=== PATIENT | female | born 1985 | race Caucasian/White ===

== ENCOUNTER → 2016-08-15 | Outpatient (CLI) | payer BC ==
--- NOTE | ~2016-08-15 | XA198 ---
[facility] A Service of [facility] RADIOLOGY TEXT RESULTS PATIENT: THELMA KAY LOCATION: [facility] ERR : 85 UNIT #: [id number] AGE: [address]: CHRISTINA BOURNE APRN SEX: F ORDER DR: [id number] [facility] [address] [place], [place] [address] [id number] O MR#: [id number] Acc #: [id number] NAME: THELMA KAY : 1985 SEX: F STUDY DATE/TIME: 08/15/2016 9:30 UNIT: [facility] ROOM: STUDY DESCRIPTION: XA Spinal Puncture Attending Physician: Christina Bourne Aprn Referring Physician: Christina Bourne Aprn Ordering Physician: Christina Bourne Aprn Primary Care Physician: Tuan Giles D.O. MEDICAL IMAGING REPORT This report is preliminary unless electronic signature is present EXAM Fluoroscopically-guided lumbar puncture INDICATION Pseudotumor cerebri. The patient reports chronic headaches for 3 years but they have gotten worse recently. PROCEDURE The risks, benefits, and alternatives to the procedure were explained to the patient, and signed, informed consent was obtained. She was placed prone on the angiographic table and was prepped and draped in the usual sterile fashion. Time-out was performed as per protocol. Skin and subcutaneous tissues were anesthetized with buffered lidocaine and a spinal needle was advanced into the spinal canal. Removal of the inner stylet yielded clear CSF and position of the needle was confirmed with a radiographic image. Initial opening pressure was 35. There was removal of approximately 12 mL of clear CSF. Closing pressure was found to be 17. Needle was then removed and manual pressure was applied until hemostasis was obtained. Total fluoroscopy time was 0.9 minutes. AK was 103 mGy. Dictated by... Emily Tavera M.D. THIS IS AN ELECTRONICALLY VERIFIED REPORT Emily Tavera M.D. at 08/18/2016 3:25 PM MARINA/alejandro TD: 08/18/2016 08:09 JOB #: [id number] MEDICAL IMAGING REPORT Page 1 of 1 COPY
[2016-08-15 09:00] LABS: HEMATOCRIT 33.8 % (35.0-45.0); HEMOGLOBIN 10.5 gm/dL (12.0-16.0); MEAN CELL VOLUME 76.5 FL (83-96); MEAN CORPUSCULAR HEMOGLOBIN 23.8 PG (28-34); MEAN CORPUSCULAR HGB CONC 31.2 g/dL (30-36); MEAN PLATELET VOLUME 7.2 FL (6.5-11.5); RED BLOOD COUNT 4.42 X10e (3.90-5.30); WHITE BLOOD COUNT 7.9 X10e3 (4.0-10.5)
[2016-08-15 09:12] LABS: INR 1.1; PARTIAL THROMBOPLASTIN TIME 25.2 SECONDS (23.5-31.3); PROTHROMBIN TIME (PATIENT) 11.8 SECONDS (10.0-11.7)
== END | disposition home or self-care (01) ==
LOC: CIVR 08:02
PROVIDERS: Nurse Practitioner Family
PROC: 009U3ZZ Drainage of Spinal Canal, Percutaneous Approach (ICD-10-PCS; principal; 2016-08-15)
DX: G93.2 Benign intracranial hypertension (principal)
CPT/HCPCS: 36415; 77003; 85027; 85610; 85730; C1713